=== PATIENT | male | born 1980 | race Caucasian/White ===

== ENCOUNTER 2024-04-19 22:41 | Emergency (ER) | payer MEDICAID ==
[~2024-04-19] VITALS: Ht 172.7 cm; Wt 95.0 kg
[2024-04-19 22:42] VITALS: BP 142/93; PULSE 95; RESP 16; TEMP 96.5; O2SAT 98
[2024-04-20 02:41] LABS: CARBON DIOXIDE 25 mEq/L (21-32); CHLORIDE 101 mEq/L (98-107); POTASSIUM 3.3 mEq/L (3.5-5.1); SODIUM 137 mEq/L (136-145)
[2024-04-20 02:42] LABS: CALCIUM 9.1 mg/dL (8.7-10.4)
[2024-04-20 02:44] LABS: BASOPHILS % 1.2 % (0.0-2.0); EOSINOPHILS % 5.9 % (0.0-5.0); HEMATOCRIT. 38.9 % (42.0-52.0); HEMOGLOBIN. 13.2 g/dL (14.0-18.0); LYMPHOCYTES % 21.6 % (20.0-50.0); MEAN CORPUSCULAR HEMOGLOBIN 32.4 pg (28.0-32.0); MEAN CORPUSCULAR VOLUME 95.1 fL (80.0-94.0); MEAN PLATELET VOLUME 7.5 fl (7.4-10.4); MONOCYTES % 12.7 % (2.0-8.0); NEUTROPHILS % 58.6 % (40.0-76.0); PLATELET 120 x1000/uL (130-400); RED BLOOD CELL COUNT 4.09 mill/uL (4.7-6.1); RED CELL DISTRIBUTION WIDTH 13.6 % (11.6-14.6); WHITE BLOOD COUNT 4.6 x1000/uL (4.5-11.0)
[2024-04-20 02:46] LABS: CREATININE 0.8 mg/dL (0.6-1.3)
[2024-04-20 02:47] LABS: GLUCOSE 121 mg/dL (70-105); UREA NITROGEN BLOOD 8 mg/dL (9-23)
[2024-04-20 02:48] LABS: ALANINE AMINOTRANSFERASE 98 IU/L (10-49); ASPARTATE AMINOTRANSFERASE 328 IU/L (<34)
[2024-04-20 02:49] LABS: ALBUMIN 4.2 g/dL (3.2-4.8); BILIRUBIN DIRECT 0.8 mg/dL (<=3.0); BILIRUBIN TOTAL 1.5 mg/dL (0.1-1.0)
[2024-04-20] MEDS: ACETAMINOPHEN 325MG TABLET PO ONE (03:15)
[2024-04-20] MEDS ORDERED: POTASSIUM CHLORIDE 20MEQ/PACKET PO NR (05:30)
== END 2024-04-19 23:49 | disposition home or self-care (01) ==
LOC: ER 22:41
DX: F10.129 Alcohol abuse with intoxication, unspecified (principal); E87.6 Hypokalemia; R10.9 Unspecified abdominal pain; I10 Essential (primary) hypertension; Y90.9 Presence of alcohol in blood, level not specified
CPT/HCPCS: 36415; 99284